=== PATIENT | male | born 1965 | race Caucasian/White ===

== ENCOUNTER 2025-03-30 13:27 | Observation (INO) | payer MEDICARE, MEDICAID, SELFPAY ==
[2025-03-30] VITALS (22 sets, daily range): BP systolic 81–128; BP diastolic 49–90; PULSE 84–102; RESP 14–33; TEMP 37.2; O2SAT 95–99
--- NOTE | ~2025-03-30 | CT_ITS ---
EXAMINATION: CT brain wo con DATE: 03/30/2025 15:36 INDICATION: Altered mental status. TECHNIQUE: Computed tomography (CT) of the head was performed without intravenous contrast. The mA was adjusted according to patient size. Iterative reconstruction technique was employed. The dose-length product was 1257.85 mGy-cm. COMPARISON: None FINDINGS: No acute intracranial bleed. Age-appropriate cerebral atrophy. No ventriculomegaly. No midline shift. No acute bone changes. Sinuses and mastoids are clear. IMPRESSION: 1. No acute findings in the limited noncontrast CT head. Reviewed, dictated and finalized at location T. E PROCESSING TECHNICIAN
--- NOTE | ~2025-03-30 | CT_ITS ---
EXAMINATION: CT chest, abdomen and pelvis with contrast: DATE: 03/30/2025 INDICATION: Clinical history relevant to this examination is not available TECHNIQUE: CT was performed through chest, abdomen and pelvis with 100 cc of IV contrast and reviewed in multiple projections. Radiation dose 480 M Gy CM. COMPARISON: Portable chest x-ray dated 03/30/2025. FINDINGS: The lungs do not show acute findings. Significant coronary artery calcifications are left main, anterior descending circumflex and right coronary artery are noted. No evidence of pneumothorax. Platelike atelectasis is noted at the right lung base. Fractures of posterior right 10th and 11th ribs are noted. Below the diaphragm, no focal lesions of liver and spleen. The gallbladder shows no acute findings. Pancreas and kidneys do not show any acute findings. No evidence of small bowel obstruction. Again fecal impaction of the proximal colon is noted to the sigmoid colon. Appendix is not distinctly visible. No inflammatory changes in the pelvis. IMPRESSION: 1. No acute CT findings in the chest, the gland fractures of posterior right 10th and 11th ribs.. Significant multivessel coronary artery calcifications. 2. No acute findings noted in the abdomen and in the pelvis. Significant diffuse fecal impaction of the colon. Reviewed, dictated and finalized at location T. GER ARCHITECTURE IMPRESSION: 1. No acute CT findings in the chest, the gland fractures of posterior right 10 th and 11th ribs.. Significant multivessel coronary artery calcifications. 2. No acute findings noted in the abdomen and in the pelvis. Significant diffus e fecal impaction of the colon.
--- NOTE | ~2025-03-30 | XR_ITS ---
EXAMINATION: XR chest 1V portable COMPARISON: No comparisons available. HISTORY: AMS FINDINGS: The lungs are clear, no effusion. No pneumothorax. Heart is normal size. Mediastinal and hilar contours are within normal limits. Bony thorax no acute abnormality. Miscellaneous: None Impression: No acute cardiopulmonary abnormality. Reviewed, dictated and finalized at location P. [employer] Impression: No acute cardiopulmonary abnormality.
--- NOTE | 2025-03-30 13:30 | ECG_ITS ---
Test Date: 2025-03-30 14:04:43 Measurements Intervals [place] Rate: 94 P: 50 IN: 128 QRS: 66 QRSD: 84 T: 45 QT: 359 QTc: 451 Interpretive Statements SINUS RHYTHM No previous ECG available for comparison Electronically Signed On 03-30-2025 14:50:24 [employer] by Jacek Barron M.D.
[2025-03-30 14:09] LABS: Hematocrit 37.0 % (42.0-52.0); Hemoglobin 12.6 g/dL (14.0-18.0); Immature Granulocyte Percent A 0.6 % (0-0.5); Lymphocytes Absolute Auto 0.59 K/mm3 (0.9-3.2); Mean Corpuscular HGB Conc 34.1 g/dl (32-36); Mean Corpuscular Hemoglobin 30.7 pg (26-34); Mean Corpuscular Volume 90.0 fl (80-100); Nucleated Red Blood Cells Absolute Auto 0.000 K/mm3 (0.0-0.012); Nucleated Red Blood Cells Perc 0.0 % (0.0-0.2); Platelet Count Result 267 k/mm3 (150-375); Red Blood Count 4.11 M/mm3 (4.6-6.20); White Blood Count 18.7 K/mm3 (4.5-10.0)
--- NOTE | 2025-03-30 14:14 | PC.NURSE ---
pt was given 1L of NS from EMS
--- NOTE | 2025-03-30 14:20 | PC.NURSE ---
pt is A&OX3 at this time. this RN attempted to straight cath for urine. pt agreed to cath. pt then began screaming and fighting this RN when attempting cath, unable to get urine due to pt resisting. this RN asked pt why he was fighting this RN if he agreed to cath and pt said I didn't think it would hurt like that
[2025-03-30 14:24] LABS: INR 1.0; Partial Thromboplastin Time 22.8 Seconds (22.3-36.8); Prothrombin Time 13.6 Seconds (11.1-14.7)
[2025-03-30 14:26] LABS: Alanine Aminotransferase 19 U/L (6-50); Albumin Level 4.5 g/dL (3.5-5.1); Alkaline Phosphatase 56 U/L (38-126); Anion Gap 11 mmol/L (4-12); Aspartate Amino Transferase 21 U/L (17-59); Bilirubin,Total 0.5 mg/dL (0.2-1.3); Blood Urea Nitrogen 19 mg/dL (9-20); CRP 2.6 mg/dL (<1.0); Calcium 8.9 mg/dL (8.4-10.2); Carbon Dioxide 26 mmol/L (22-30); Chloride 100 mmol/L (98-107); Estimated CRCL calculation 50 ml/min; Estimated Glomerular Filt Rate 51; Glucose 243 mg/dL (65-110); Lipase 26 U/L (23-300); Potassium 4.5 mmol/L (3.4-5.0); Sodium 137 mmol/L (137-145); Total Protein 7.4 g/dL (6.3-8.2)
[2025-03-30 14:36] LABS: Troponin I 0.017 ng/mL (0.000-0.034)
[2025-03-30 17:19] LABS: Add Urine Microscopic? YES; Appearance Urine Clear (Clear); Glucose Urine UA 1+ mg/dL (Negative); Leukocyte Esterase Ur Trace LEU/UL (Negative); Nitrate Urine Negative (Negative); Non Pathogenic Casts 0-2; Specific Grav Ur 1.013 (1.001-1.035)
[2025-03-30] MEDS: LACTATED RINGERS 1,000 ML 999 ML (18:02)
--- NOTE | 2025-03-30 18:02 | PC.NURSE ---
EDP Dr. Mckeon gave verbal order for 1L of LR due to pt BP
--- NOTE | 2025-03-30 19:47 | ED_ITS ---
HPI - General Adult General Chief complaint: Altered Mental Status Stated complaint: AMS Time Seen by Provider: 03/30/25 18:00 History of Present Illness HPI narrative: 59-year-old male presents to the emergency department from local intermediate for altered mental status. Patient was found to be more confused and had a low blood pressure at the care facility. Patient was transferred to emergency department by EMS. Patient was treated with IV fluids and route did have improvement his blood pressure. Upon arrival to the emergency department patient states that his speech is at its normal baseline and patient has no dentures and this is the only speech changes that I can identify. Patient has no acute focal neurologic abnormalities. Patient does have history of schizophrenia. Related Data Allergies Allergy/AdvReac Type Severity Reaction Status Date / Time No Known Allergies Allergy Verified 03/30/25 13:59 Review of Systems 2 Review of Systems: All systems reviewed & are unremarkable except as noted in HPI and below PMFSH Past Medical History Medical History (Updated 03/30/25 @ 22:47 by Jeremy Mckeon MD) Schizophrenia Social History Social History (Updated 03/30/25 @ 20:19 by aRdha Kimble APRN) Social History: and has one child . He lives at [facility] Smoking status: Current every day smoker Tobacco type: cigarettes Exam 2 Narrative: APPEARANCE: Well appearing, no pain, no distress, well-nourished. HEAD: normocephalic, atraumatic. EYES: PERRLA/EOMI, conjunctivae clear. NOSE: Normal no drainage EARS:TMS clear with good light reflex. THROAT: Pharynx clear, no exudate. NECK: Supple. No adenopathy, no masses. RESPIRATORY: Airway patent, respirations nonlabored. Clear to auscultation bilaterally, no rales, rhonchi, wheezing. CARDIOVASCULAR: Regular rate and rhythm without murmurs rubs or gallops. ABDOMINAL: Soft, nontender, nondistended, normal bowel sounds MUSCULOSKELETAL: Moves all extremities. Strength/ROM intact, No edema, No calf tenderness. NEURO: Alert. Cranial nerves II through XII intact. Good gait. Good coordination SKIN: Warm, dry. Normal Color Course Vital Signs Vital signs: Vital Signs Temperature 99.0 F 03/30/25 13:18 Pulse Rate 101 H 03/30/25 13:18 Respiratory Rate 32 H 03/30/25 13:18 Blood Pressure 85/66 L 03/30/25 13:18 Pulse Oximetry 95 03/30/25 13:18 Oxygen Delivery Room Air 03/30/25 13:18 Temperature 99.0 F 03/30/25 13:18 Pulse Rate 87 03/30/25 19:37 Respiratory Rate 20 03/30/25 19:37 Blood Pressure 99/90 L 03/30/25 19:37 Pulse Oximetry 96 03/30/25 19:37 Oxygen Delivery Room Air 03/30/25 13:54 Medical Decision Making MDM Narrative Medical decision making narrative: 59-year-old male presents to the emergency department for evaluation for altered mental status. Patient a elevated white blood cell count of 18.7. Hemoglobin of 12.6. INR of 1.0. Patient's creatinine is 1.41 a no baseline is known. Patient's blood glucose is 243. Lactic acid is 2.9. Patient has a troponin of 0.017. Patient's CRP is mildly elevated. Patient UA was negative. CT chest abdomen pelvis showed no acute abnormalities other than a possible fecal impaction. CT head showed no acute abnormalities. Chest x-ray shows no evidence of pneumonia. Patient did respond well to fluid resuscitation. Is still confused emergency department. Patient states his speech is at baseline. Patient has no focal neuro deficit. Patient does not have his teeth and this is affecting his speech. Patient was started on antibiotics for stercoral colitis. Case was discussed with hospitalist patient was accepted for admission. Patient was updated on the results of workup and plan for admission. All questions concerns were addressed. Patient was resting comfortably at time of admission. Differential Diagnosis Differential Diagnosis: Subdural hematoma, subarachnoid hemorrhage, colitis, diverticulitis, appendicitis, pneumonia, COVID, RSV, influenza, UTI Vital Signs Vital Signs: Vital Signs Temperature 99.0 F 03/30/25 13:18 Pulse Rate 101 H 03/30/25 13:18 Respiratory Rate 32 H 03/30/25 13:18 Blood Pressure 85/66 L 03/30/25 13:18 Pulse Oximetry 95 03/30/25 13:18 Oxygen Delivery Room Air 03/30/25 13:18 Temperature 99.0 F 03/30/25 13:18 Pulse Rate 87 03/30/25 19:37 Respiratory Rate 20 03/30/25 19:37 Blood Pressure 99/90 L 03/30/25 19:37 Pulse Oximetry 96 03/30/25 19:37 Oxygen Delivery Room Air 03/30/25 13:54 Lab Data Lab results reviewed: Yes I reviewed the patient's lab results. 03/30/25 13:49 03/30/25 13:49 Labs: Lab Results 03/30/25 03/30/25 03/30/25 Range/Units 13:49 16:53 16:56 WBC 18.7 H (4.5-10.0) K/mm3 RBC 4.11 L (4.6-6.20) M/mm3 Hgb 12.6 L (14.0-18.0) g/dL Hct 37.0 L (42.0-52.0) % MCV 90.0 (80-100) fl MCH 30.7 (26-34) pg MCHC 34.1 (32-36) g/dl RDW 12.7 (11.5-14.5) % Plt Count 267 (150-375) k/mm3 MPV 10.6 H (7.4-10.4) fl Immature Gran % (Auto) 0.6 H (0-0.5) % Neut % (Auto) 83.4 H (45.5-73.1) % Lymph % (Auto) 3.2 L (18.3-44.2) % [place] % (Auto) 12.2 H (2.6-8.5) % Eos % (Auto) 0.3 (0-4.4) % Baso % (Auto) 0.3 (0.2-1.2) % Lymph # (Auto) 0.59 L (0.9-3.2) K/mm3 [place] # (Auto) 2.3 H (0.1-0.6) K/mm3 Eos # (Auto) 0.1 (0-0.3) K/mm3 Baso # (Auto) 0.1 (0.0-0.1) K/mm3 Abs Immat Gran (auto) 0.12 H (0.00-0.031) K/mm3 Absolute Neuts (auto) 15.6 H (1.3-6.7) K/mm3 Absolute Nucleated RBC 0.000 (0.0-0.012) K/mm3 Nucleated RBC % 0.0 (0.0-0.2) % PT 13.6 (11.1-14.7) Seconds INR 1.0 APTT 22.8 (22.3-36.8) Seconds Sodium 137 (137-145) mmol/L Potassium 4.5 (3.4-5.0) mmol/L Chloride 100 (98-107) mmol/L Carbon Dioxide 26 (22-30) mmol/L Anion Gap 11 (4-12) mmol/L BUN 19 (9-20) mg/dL Creatinine 1.41 H (0.7-1.3) mg/dL Estim Creat Clear Calc 50 ml/min Estimated GFR 51 L (59 - ) Glucose 243 H (65-110) mg/dL Lactic Acid 3.9 H 2.9 H (0.7-2.0) mmol/L Calcium 8.9 (8.4-10.2) mg/dL Total Bilirubin 0.5 (0.2-1.3) mg/dL AST 21 (17-59) U/L ALT 19 (6-50) U/L Alkaline Phosphatase 56 (38-126) U/L Troponin I 0.017 (0.000-0.034) ng/mL C-Reactive Protein 2.6 H (<1.0) mg/dL Total Protein 7.4 (6.3-8.2) g/dL Albumin 4.5 (3.5-5.1) g/dL Lipase 26 (23-300) U/L Urine Color Yellow (Yellow) Urine Appearance Clear (Clear) Urine pH 7.5 (5.0-9.0) Ur Specific [place] 1.013 (1.001-1.035) Urine Protein Negative (Negative) mg/dL Urine Glucose (UA) 1+ H (Negative) mg/dL Urine Ketones Negative (Negative) mg/dL Ur Blood (Man) Negative (Negative) Urine Nitrate Negative (Negative) Urine Bilirubin Negative (Negative) Urine Urobilinogen 1.0 (<2.0) mg/dL Leukocyte Esterase Rfl Trace H (Negative) TYRONE/UL Urine RBC 0-2 (0-2) /hpf Urine WBC 0-5 (0-3) /hpf Ur Squamous Epith Cells None seen (Few) /hpf Urine Bacteria None seen /hpf Urine Casts 0-2 Imaging Data Attestation: I personally reviewed and interpreted this imaging study as follows: My impression: Chest x-ray: No acute cardiopulmonary abnormality Radiologist's impression: Impressions Chest X-Ray 03/30/25 14:11 Impression: No acute cardiopulmonary abnormality. Head CT 03/30/25 15:37 IMPRESSION: 1. No acute findings in the limited noncontrast CT head. Chest/Abdomen/Pelvis CT 03/30/25 18:48 IMPRESSION: 1. No acute CT findings in the chest, the gland fractures of posterior right 10th and 11th ribs.. Significant multivessel coronary artery calcifications. 2. No acute findings noted in the abdomen and in the pelvis. Significant diffuse fecal impaction of the colon. Discharge Plan Discharge Clinical Impression: Altered mental status, Sepsis Patient Disposition: Still a Patient Condition: Stable
--- NOTE | 2025-03-30 20:15 | PM.IMHP ---
H&P: HPI History of Present Illness Date/Time: 03/30/25 20:15 Chief Complaint: Altered mental status PE Narrative: This is a 59-year-old male patient who resides at [facility]. He tells me he has a history of schizophrenia. The patient is edentulous and he is difficult to understand. However the [facility] facility felt that the patient's mental status was altered. Her also reported that he had a low blood pressure at the the nursing care facility. The patient was brought to the emergency room via EMS. The patient was treated with IV fluids EN route and his blood pressure did improve. He has no focal neurological abnormalities. His white count was noted to be 18.7. H&H is 12.6 and 37.0. His lactic was 3.9 and 2.9. His glucose was 240. His creatinine is 1.4 with BUN of 19. GFR is 51. He is a very poor historian. Chest x-ray was read as no acute cardiopulmonary abnormality. Head CT was noted as no acute findings and limited non contrast CT head. [id number] CT was read as no acute findings in the abdomen or pelvis. Significant diffuse fecal impaction of the colon. No acute CT findings in the chest, likely and fractures of posterior right 10th and 11th ribs. Significant multivessel coronary artery calcifications. Blood pressures initially were 81/66 and 1 fluids he did come up to 126/69. She is a very poor historian. The patient was empirically placed on Rocephin in the emergency room for an elevated white count. However no source of the infection has been noted.He is being admitted to observation on the dos of 03/30/2025 Review of Systems Review of Systems: ROS unobtainable: Yes unobtainable due to mental status [facility] Past Medical History Medical History (Updated 03/31/25 @ 03:03 by Radha Kimble APRN) Hyperlipidemia COPD (chronic obstructive pulmonary disease) DM2 (diabetes mellitus, type 2) Generalized anxiety disorder Hypertension Schizophrenia Paranoid schizophrenia Surgical History Surgical History (Updated 03/31/25 @ 19:17 by Radha Kimble APRN) No pertinent past surgical history Family History Family History (Updated 03/31/25 @ 19:18 by Radha Kimble APRN) Other Unknown family medical history Social History Social History (Updated 03/31/25 @ 03:04 by Radha Kimble, SENIOR MECHANICAL PROJECT ENGINEER) Social History: He stated that he is and has one child . He lives at [facility], [place] Code status: DNR Smoking packs per day: 1 Smoking cigarettes per day: 20.0 Years smoked: 45 Smoking pack-years: 45.00 Smoking status: Current every day smoker Tobacco type: cigarettes Second hand tobacco smoke exposure: Yes Alcohol intake: unknown Substance use: unknown Spiritual care concerns: No Meds Home Medications and Allergies Home Medications ?Medication ?Instructions ?Recorded ?Confirmed ?Type amlodipine 10 mg tablet 10 mg PO DAILY 03/30/25 03/30/25 History benztropine 1 mg tablet 2 mg PO BID 03/30/25 03/30/25 History divalproex 500 mg tablet,delayed 500 mg PO Q12H 03/30/25 03/30/25 History release escitalopram oxalate 20 mg tablet 20 mg PO DAILY 03/30/25 03/30/25 History fenofibrate nanocrystallized 48 mg 48 mg PO DAILY 03/30/25 03/30/25 History tablet fluticasone propionate 115 2 puff inhalation Q12H 03/30/25 03/30/25 History mcg-salmeterol 21 mcg/actuation HFA inhaler fluticasone propionate 50 2 spray intranasal DAILY 03/30/25 03/30/25 History mcg/actuation nasal spray,suspension lidocaine 5 % topical patch 1 patch topical DAILY 03/30/25 03/30/25 History lisinopril 10 mg tablet 10 mg PO DAILY 03/30/25 03/31/25 History olanzapine 10 mg tablet 10 mg PO DAILY 03/30/25 03/30/25 History pantoprazole 40 mg tablet,delayed 40 mg PO DAILY 03/30/25 03/31/25 History release albuterol 90 mcg-budesonide 80 2 inh inhalation Q6H PRN shortness 03/31/25 03/31/25 History mcg/actuation HFA aerosol inhaler of breath (Airsupra) atorvastatin 20 mg tablet 20 mg PO HS 03/31/25 03/31/25 History bisacodyl 10 mg rectal suppository 10 mg RECTAL DAILY PRN constipation 03/31/25 03/31/25 History cyanocobalamin (vitamin B-12) 1,000 mcg PO DAILY 03/31/25 03/31/25 History 1,000 mcg capsule diclofenac sodium 1 % topical gel 2 g topical QID 03/31/25 03/31/25 History hydrocodone 5 mg-acetaminophen 325 1 tablet PO Q6H PRN pain 03/31/25 03/31/25 History mg tablet magnesium citrate 296 ml PO DAILY PRN constipation 03/31/25 03/31/25 History magnesium hydroxide 400 mg/5 mL 30 ml PO DAILY PRN constipation 03/31/25 03/31/25 History oral suspension (Milk of Magnesia) meloxicam 15 mg tablet 15 mg PO DAILY PRN pain 03/31/25 03/31/25 History metformin 1,000 mg tablet 1,000 mg PO DAILY 03/31/25 03/31/25 History naloxone 4 mg/actuation nasal 4 mg intranasal Q2-3M PRN opioid 03/31/25 03/31/25 History spray (Narcan) overdose olanzapine 5 mg tablet 5 mg PO HS 03/31/25 03/31/25 History sodium phosphates 19 gram-7 118 ml RECTAL DAILY PRN 03/31/25 03/31/25 History gram/118 mL enema (Fleet Enema) constipation Allergies Allergy/AdvReac Type Severity Reaction Status Date / Time No Known Allergies Allergy Verified 03/31/25 00:26 Vital Signs Vital Signs - 24 hr 03/30/25 13:18 03/30/25 13:34 03/30/25 13:53 Temperature 99.0 F Pulse Rate 101 H 101 H 101 H Respiratory Rate 32 H 21 H Blood Pressure 85/66 L 107/66 Pulse Oximetry 95 97 Oxygen Delivery Room Air 03/30/25 13:54 03/30/25 14:24 03/30/25 14:25 Temperature Pulse Rate 102 H 100 Respiratory Rate 16 25 H Blood Pressure 128/67 128/67 Pulse Oximetry 99 98 97 Oxygen Delivery Room Air 03/30/25 14:26 03/30/25 14:30 03/30/25 14:31 Temperature Pulse Rate 100 96 96 Respiratory Rate 19 29 H Blood Pressure 107/65 107/65 Pulse Oximetry Oxygen Delivery 03/30/25 14:46 03/30/25 15:00 03/30/25 15:15 Temperature Pulse Rate 95 93 94 Respiratory Rate 27 H 24 H 24 H Blood Pressure 99/69 L 96/69 L 98/70 L Pulse Oximetry Oxygen Delivery 03/30/25 16:45 03/30/25 17:00 03/30/25 17:15 Temperature Pulse Rate 88 90 90 Respiratory Rate 22 H 26 H 33 H Blood Pressure 106/67 105/62 104/64 Pulse Oximetry Oxygen Delivery 03/30/25 17:30 03/30/25 17:45 03/30/25 17:58 Temperature Pulse Rate 88 85 92 Respiratory Rate 22 H 25 H 26 H Blood Pressure 99/49 L 89/64 L 81/66 L Pulse Oximetry 97 Oxygen Delivery 03/30/25 18:00 03/30/25 18:17 03/30/25 19:37 Temperature Pulse Rate 89 84 87 Respiratory Rate 24 H 20 20 Blood Pressure 104/61 114/57 L 99/90 L Pulse Oximetry 96 96 Oxygen Delivery Exam Const: General: cooperative, healthy appearing, awake, Physically active, average body habitus and well nourished Nutritional Appearance: average body habitus and well nourished Orientation/consciousness: oriented to person HENMT: Head: normal to inspection, No palpable skull fracture present, normocephalic, atraumatic and abrasion Ears: hearing grossly normal bilaterally and external ears normal Eyes: General: appearance normal, both eyes and all related structures Alignment and Position: alignment normal Periorbital: periorbital findings normal Eyelids: eyelids normal Conjunctivae: conjunctivae normal Sclera: sclerae normal Cornea: corneas normal Pupils: Equal, round and reactive pupils present and Pupil accommodation reflex normal EOM: EOMs intact bilaterally Neck: Neck: normal visual inspection, full ROM, no lymphadenopathy and trachea midline Chest: Chest palpation & inspection: normal inspection of the chest Resp: Effort & Inspection: normal respiratory effort Auscultation: clear to auscultation bilaterally Percussion: percussion normal Cardio: Palpation: normal PMI Rate: regular rate Rhythm: regular rhythm Heart sounds: S1 normal heart sound present and S2 normal heart sound present Peripheral pulses: Peripheral pulses 2+ throughout GI: Inspection: normal to inspection Percussion: Yes normal to percussion Auscultation: normal bowel sounds Rectal Exam: deferred : General: Yes no CVA tenderness Skin: General skin exam: normal color Lesions: no lesions Rashes: no rashes Trauma: no lacerations or abrasions Wounds: no wounds Hair: normal Nails: normal Neuro: General: oriented to person and patient oriented x3 Cranial nerves: Yes Equal, round and reactive pupils present and Yes Normal hearing present Gait exam (Neuro): Normal gait present Motor exam (neuro): 5/5 motor strength present throughout Sensory Exam: normal sensation Extrem: General: normal to inspection Right upper extremity: normal to inspection and shoulder/upper arm Left upper extremity: normal to inspection and shoulder/upper arm Right lower extremity: normal to inspection Left lower extremity: normal to inspection Psych: Appearance: grossly normal Mental Status: mental status grossly normal Speech and movement: Normal speech and movement present Affect: normal affect Attitude: cooperative Thought process: Normal thought process present Thought content: Yes Normal thought content present H&P: Results Labs Labs: Short CBC 03/30/25 Range/Units 13:49 WBC 18.7 H (4.5-10.0) K/mm3 Hgb 12.6 L (14.0-18.0) g/dL Hct 37.0 L (42.0-52.0) % Plt Count 267 (150-375) k/mm3 BMP 03/30/25 13:49 Sodium 137 Potassium 4.5 Chloride 100 Carbon Dioxide 26 BUN 19 Creatinine 1.41 H Glucose 243 H Calcium 8.9 Cardiac Enzymes 03/30/25 Range/Units 13:49 Troponin I 0.017 (0.000-0.034) ng/mL Liver Function 03/30/25 Range/Units 13:49 Total Bilirubin 0.5 (0.2-1.3) mg/dL AST 21 (17-59) U/L ALT 19 (6-50) U/L Alkaline Phosphatase 56 (38-126) U/L Albumin 4.5 (3.5-5.1) g/dL Urine 03/30/25 Range/Units 16:56 Urine Color Yellow (Yellow) Urine Appearance Clear (Clear) Urine pH 7.5 (5.0-9.0) Ur Specific [place] 1.013 (1.001-1.035) Urine Protein Negative (Negative) mg/dL Urine Glucose (UA) 1+ H (Negative) mg/dL Imaging Chest x-ray: Radiologist's impression: ITS Impressions Chest X-Ray 03/30/25 14:11 Impression: No acute cardiopulmonary abnormality. Head CT 03/30/25 15:37 IMPRESSION: 1. No acute findings in the limited noncontrast CT head. Chest/Abdomen/Pelvis CT 03/30/25 18:48 IMPRESSION: 1. No acute CT findings in the chest, the gland fractures of posterior right 10th and 11th ribs.. Significant multivessel coronary artery calcifications. 2. No acute findings noted in the abdomen and in the pelvis. Significant diffuse fecal impaction of the colon. Assessment and Plan Assessment and plan (1) Altered mental status: Code(s): R41.82 - Altered mental status, unspecified Status: Acute Assessment and Plan: -the patient was hypotensive upon arrival. However after IV fluids the patient was more awake. However at the time of my assessment in the emergency room the patient was a poor historian. -his white count was elevated but this could be stress-induced. No source of infection was located at this time. The patient was empirically started on Rocephin. -His head CT was negative. -urine drug screen was ordered -blood cultures were ordered. -he also has a history of schizophrenia which may have caused some of his altered mental status as well. -chest abdomen pelvis CT only suggested that he had old rib fractures. And also suggested that he had multiple coronary artery calcification however the patient has not had any chest pain. The patient may require further workup per cardiology due to the calcification with multiple coronary arteries. He denies any chest pain at this time. He is currently on cholesterol medicine. -his lactic was 3.9 and then 2.9. -could the patient have had a seizure?(the patient does on the divalproex, is unclear if this is for his mental illness or a seizure) (2) COPD (chronic obstructive pulmonary disease): Code(s): J44.9 - Chronic obstructive pulmonary disease, unspecified Status: Acute Assessment and Plan: -continue with home inhalers. - (3) DM2 (diabetes mellitus, type 2): Code(s): E11.9 - Type 2 diabetes mellitus without complications Status: Acute Assessment and Plan: -Accu-Cheks AC and HS. -hold metformin at this time. -check A1c. -his blood sugar was noted to be 243. -his anion gap was 11. (4) Hyperlipidemia: Code(s): E78.5 - Hyperlipidemia, unspecified Status: Acute Assessment and Plan: -continue with atorvastatin and fenofibrate (5) Hypertension: Code(s): I10 - Essential (primary) hypertension Status: Acute Assessment and Plan: -patient's blood pressure medications are on hold at this time due to his hypotensive event. HIs blood pressure was a 81/66 and is now 126/69. (6) Generalized anxiety disorder: Code(s): F41.1 - Generalized anxiety disorder Status: Acute Assessment and Plan: -continue with Lexapro (7) Schizophrenia: Code(s): F20.9 - Schizophrenia, unspecified Status: Acute Assessment and Plan: -continue with olanzapine and divalproex? Quality VTE Prophylaxis VTE prophylaxis: mechanical ordered
[2025-03-30] MEDS: LACTATED RINGERS 1,000 ML 150 ML IV CONT (20:24)
[2025-03-30] MEDS: cefTRIAXone 1 GM in SODIUM CHLORIDE 0.9% IV 50 ML 100 ML IVPB (20:24)
[2025-03-30] MEDS: metroNIDAZOLE 500 MG/ISO 100ML 500 MG/100 ML BAG 100 MG IVPB (21:06)
--- NOTE | 2025-03-30 23:09 | WPCEDHO ---
ED Hand Off Checklist All vitals saved: YES IV Site documented: YES All med administrations documented: YES Triage Note Triage Note pt to ED from [facility] 03/30/25 13:18 [facility] for c/o AMS. EMS reports confusion, abnormal speech (not normal for pt), usually A&OX2-3 baseline pt is not answering questions or acting appropriately . unknown LKW. EMS reports FAST ED 1. EMS got a BP of 96/64, EMS initiated 18gLAC and gave 200mL NS, got a BP of 110/60. EMS reports pt was tachy. EMS got a BG of 241. HX schizophrenia, COPD , HTN, T2DM. pt is A&OX0 at this time Allergies No Known Allergies Allergy (Verified 03/30/25 13:59) Active Medications including assessments/comments Lactated Ringer's (Lr - Lactated Ringers Iv) 1,000 mls @ 150 mls/hr IV CONT .[id number] STA Stop: 03/31/25 02:20 Last Admin: 03/30/25 20:24 Dose: 150 mls/hr Documented By: RAFFI Infusion/Titration Document 03/30/25 20:24 RAFFI (Rec: 03/30/25 20:24 RAFFI [id number]) Intake IV Site Peripheral Access Right Antecubital Container Volume 1,000 Waste Amount 0 Dosing Infusion Rate 150 Cumulative Dose Not Applicable Increase/Decrease Started Elapsed Time Elapsed Time ( 0m minutes) Administered/Completed Medications Discontinued Medications Lactated Ringer's (Lr - Lactated Ringers Iv) Confirm Administered Dose 1,000 mls @ as directed .ROUTE .STK-MED ONE Stop: 03/30/25 18:00 Last Infusion: 03/30/25 19:38 Dose: Infused Documented By: Admin: 03/30/25 18:02 Dose: 999 mls/hr Documented By: GENARO Ceftriaxone Sodium 1 gm/ (Sodium Chloride) 50 mls @ 100 mls/hr IVPB ONCE STA Stop: 03/30/25 20:10 Last Infusion: 03/30/25 21:01 Dose: Infused Documented By: Admin: 03/30/25 20:24 Dose: 100 mls/hr Documented By: RAFFI Metronidazole (Flagyl 500 Mg/Iso Soln 100 Ml) 500 mg in 100 mls @ 100 mls/hr IVPB ONCE STA Stop: 03/30/25 20:40 Last Infusion: 03/30/25 22:27 Dose: Infused Documented By: Admin: 03/30/25 21:06 Dose: 100 mls/hr Documented By: JOHN Notes 03/30/25 18:02 Nurse Note by Ana Davis EDP Dr. Mckeon gave verbal order for 1L of LR due to pt BP Initialized on 03/30/25 18:02 - END OF NOTE 03/30/25 14:20 Nurse Note by Ana Davis. pt is A&OX3 at this time. this RN attempted to straight cath for urine. pt agreed to cath. pt then began screaming and fighting this RN when attempting cath, unable to get urine due to pt resisting. this RN asked pt why he was fighting this RN if he agreed to cath and pt said I didn't think it would hurt like that Initialized on 03/30/25 14:20 - END OF NOTE 03/30/25 14:14 Nurse Note by Ana Davis. pt was given 1L of NS from EMS Initialized on 03/30/25 14:14 - END OF NOTE Interventions/Assessments Cardiac Monitoring Start: 03/30/25 13:16 Freq: Status: Active Protocol: Document 03/30/25 14:26 KNW (Rec: 03/30/25 14:26 KNW [id number]) Train Master Assessment Train Master Yes Applied Pulse Rate (60-100) 100 EKG Rythm Sinus Rhythm IV / Saline Lock, Insert Start: 03/30/25 13:16 Freq: Status: Active Protocol: Document 03/30/25 15:48 KNW (Rec: 03/30/25 15:49 KNW [id number]) IV Assessment Peripheral Access Left Antecubital IV Catheter Access Discontinued Access IV Care and Catheter Removed Intact Maintenance Additional IV pt ripped IV out Comments PA: Cardiovascular Assessment Start: 03/30/25 13:16 Freq: Status: Active Protocol: Document 03/30/25 13:54 KNW (Rec: 03/30/25 13:59 KNW [id number]) Cardiovascular Assessment Skin Description Normal Color Heart Sounds Normal Jugular Vein None Distention PA: Neurological Assessment Start: 03/30/25 13:16 Freq: Status: Active Protocol: Document 03/30/25 23:07 MCO (Rec: 03/30/25 23:08 MCO [id number]) Neurological Assessment Level of Sleeping Consciousness Arousable to Verbal Orientation Oriented to Person,Oriented to Place Neurological Confusion,Weakness, General Symptoms PA: Respiratory Assessment Start: 03/30/25 13:16 Freq: Status: Active Protocol: Document 03/30/25 13:54 KNW (Rec: 03/30/25 13:59 KNW [id number]) Respiratory Assessment Symptoms None Pattern Tachypnea Depth Shallow Chest Expansion Symmetrical Anterior Upper Lobe(s) Phase Inspiratory & Expiratory Lung Sounds Clear Cough Description None Sputum Amount None Oxygen Delivery Oxygen Delivery Room Air Pulse Oximetry (90- 99 100) Last Vital Signs Temperature 99.0 F 03/30/25 13:18 Pulse Rate 87 03/30/25 19:37 Respiratory Rate 14 03/30/25 23:05 Pulse Oximetry 98 03/30/25 23:05 Blood Pressure 93/50 L 03/30/25 23:05 Blood Pressure Mean 64 03/30/25 23:05 Blood Pressure Position Right Lateral 03/30/25 23:05 Oxygen Delivery Room Air 03/30/25 13:54 Weight 78.2 kg 03/30/25 13:18 Last Result - Abnormals Only WBC 18.7 K/mm3 (4.5-10.0) H 03/30/25 13:49 RBC 4.11 M/mm3 (4.6-6.20) L 03/30/25 13:49 Hgb 12.6 g/dL (14.0-18.0) L 03/30/25 13:49 Hct 37.0 % (42.0-52.0) L 03/30/25 13:49 MPV 10.6 fl (7.4-10.4) H 03/30/25 13:49 Immature Gran % (Auto) 0.6 % (0-0.5) H 03/30/25 13:49 Neut % (Auto) 83.4 % (45.5-73.1) H 03/30/25 13:49 Lymph % (Auto) 3.2 % (18.3-44.2) L 03/30/25 13:49 [place] % (Auto) 12.2 % (2.6-8.5) H 03/30/25 13:49 Lymph # (Auto) 0.59 K/mm3 (0.9-3.2) L 03/30/25 13:49 [place] # (Auto) 2.3 K/mm3 (0.1-0.6) H 03/30/25 13:49 Abs Immat Gran (auto) 0.12 K/mm3 (0.00-0.031) H 03/30/25 13:49 Absolute Neuts (auto) 15.6 K/mm3 (1.3-6.7) H 03/30/25 13:49 Creatinine 1.41 mg/dL (0.7-1.3) H 03/30/25 13:49 Estimated GFR 51 (59-) L 03/30/25 13:49 Glucose 243 mg/dL (65-110) H 03/30/25 13:49 Lactic Acid 2.9 mmol/L (0.7-2.0) H 03/30/25 16:53 C-Reactive Protein 2.6 mg/dL (<1.0) H 03/30/25 13:49 Urine Glucose (UA) 1+ mg/dL (Negative) H 03/30/25 16:56 Leukocyte Esterase Rfl Trace TYRONE/UL (Negative) H 03/30/25 16:56
--- NOTE | 2025-03-30 23:40 | ADMGEN ---
This patient, Efrain Longo, was admitted to IMU Room 206-01 via stretcher with one tech and no issues present. Patient/family oriented to hospital policies and general routines including ID bracelet, bed and alarms, visiting hours, pain management, procedures, bathroom and other care routines, personal items, smoking policy, room service/diet, and visiting hours. Information on how to activate the Rapid Response Team has been discussed. Patient/Family are encouraged to report perceived risks to care and to ask questions if they do not understand what they are told or what they should do.
[2025-03-31] VITALS (16 sets, daily range): BP systolic 112–150; BP diastolic 55–90; PULSE 69–92; RESP 15–20; TEMP 36.4–37.1; O2SAT 93–100; BMI 24.5; BMI 25.4
--- NOTE | 2025-03-31 01:35 | PC.NURSE ---
Pt code status changed to DNR from Full code verified by second RN Bianca Coronado, pts nursing facility [facility] in [place] has been provided the fax number to send the correct documentation for code status.
[2025-03-31 04:03] LABS: Cannabinoid Screen Urine Negative (Negative)
[2025-03-31 04:11] LABS: Hematocrit 31.3 % (42.0-52.0); Hemoglobin 10.4 g/dL (14.0-18.0); Mean Corpuscular HGB Conc 33.2 g/dl (32-36); Mean Corpuscular Hemoglobin 30.1 pg (26-34); Mean Corpuscular Volume 90.7 fl (80-100); Platelet Count Result 215 k/mm3 (150-375); Red Blood Count 3.45 M/mm3 (4.6-6.20); White Blood Count 13.9 K/mm3 (4.5-10.0)
[2025-03-31 04:21] LABS: Hemoglobin A1C 7.8 % (<5.7)
[2025-03-31 05:00] LABS: Anion Gap 6 mmol/L (4-12); Blood Urea Nitrogen 15 mg/dL (9-20); Calcium 8.4 mg/dL (8.4-10.2); Carbon Dioxide 27 mmol/L (22-30); Chloride 102 mmol/L (98-107); Estimated CRCL calculation 57 ml/min; Estimated Glomerular Filt Rate > 60; Glucose 166 mg/dL (65-110); Potassium 3.8 mmol/L (3.4-5.0); Sodium 135 mmol/L (137-145)
[2025-03-31] MEDS: metroNIDAZOLE 500 MG/ISO 100ML 500 MG/100 ML BAG 100 MG IVPB ×3 (05:49→21:15)
[2025-03-31] MEDS: FLUTICASONE/SALMETEROL 115-21 MCG INHALER 1 PUFF 2 PUFF INHALATION ×2 (07:53→19:57)
[2025-03-31] MEDS: INSULIN ASPART (*BKC) 100 UNITS/ML SUB-Q (07:56)
[2025-03-31] MEDS: LIDOCAINE 5% PATCH 1 PATCH TOPICAL (07:58)
[2025-03-31] MEDS: ESCITALOPRAM OXALATE 10 MG TABLET 20 MG PO (07:59)
[2025-03-31] MEDS: CYANOCOBALAMIN 1,000 MCG TABLET 1000 MCG PO (07:59)
[2025-03-31] MEDS: FLUTICASONE PROPIONATE 0.05% NA SPR 16 GM BTL (*BKC) 2 SPRAY NASAL (07:59)
[2025-03-31] MEDS: PANTOPRAZOLE 40 MG TABLET PO (07:59)
[2025-03-31] MEDS: DIVALPROEX SODIUM DR 250 MG TABEC 500 MG PO ×2 (08:00→20:41)
[2025-03-31] MEDS: FENOFIBRATE 48 MG TABLET PO (08:00)
[2025-03-31] MEDS: DICLOFENAC SODIUM 1% 100 GM GEL (*BKC) 1 APPLIC TOPICAL ×4 (08:01→20:49)
[2025-03-31] MEDS: BENZTROPINE MESYLATE 1 MG TABLET 2 MG PO ×2 (08:01→20:41)
[2025-03-31] MEDS: BISACODYL 10 MG SUPPOSITORY RECTAL (16:26)
--- NOTE | 2025-03-31 16:27 | PM.IMPN ---
Progress Note: A&P Assessment and Plan (1) Altered mental status: Code(s): R41.82 - Altered mental status, unspecified Status: Acute Assessment and Plan: The patient was hypotensive upon arrival. However after IV fluids the patient was more awake. WBC 19K and Lactic acid 3.9. No source of infection was located at this time. Head CT was negative. CXR clear. UA is not consistent with UTI. CT Ch/A/P showing no acute findings. He did have fecal impaction and significant coronary artery calcifications. No CP. UDS negative. Troponin negative x 1 BCx ordered and he was empirically started on Rocephin. Consider possible seizure but no metabolic acidosis. He is on divalproex but unclear if for his mental illness or for seizure d/o Appears improved but still confused. Check EEG if still here by Thursday. Sz precautions. Consider MRI. Blood cultures are negative after 2 days, will stop antibiotics (2) COPD (chronic obstructive pulmonary disease): Code(s): J44.9 - Chronic obstructive pulmonary disease, unspecified Status: Acute Assessment and Plan: Stable and on room air. No wheezing. Continue inhalers (3) DM2 (diabetes mellitus, type 2): Code(s): E11.9 - Type 2 diabetes mellitus without complications Status: Acute Assessment and Plan: A1c 7.8%. The patient's blood glucose was reviewed on 03/31 Glucose remains elevated at times Continue AccuCheks covering with sliding scale. Hypoglycemia protocol available as needed. Add Lantus (4) Hyperlipidemia: Code(s): E78.5 - Hyperlipidemia, unspecified Status: Acute Assessment and Plan: LFTs normal. Continue with atorvastatin and fenofibrate (5) Hypertension: Code(s): I10 - Essential (primary) hypertension Status: Acute Assessment and Plan: Patient's blood pressure was reviewed on 03/31 BP was 85/66 on presentation. BP remains soft at times. Will continue lisinopril and place parameters (6) Generalized anxiety disorder: Code(s): F41.1 - Generalized anxiety disorder Status: Acute Assessment and Plan: Mood stable. Continue with Lexapro (7) Schizophrenia: Code(s): F20.9 - Schizophrenia, unspecified Status: Acute Assessment and Plan: Stable. Continue with olanzapine Plan Coronary calcifications -plan outpatient follow-up with Cardiology after discharge. Continue Lipitor. Add aspirin Fecal impaction -MiraLax started. Will switch to lactulose. DVT prophylaxis -SCDs Code status -DNR Subjective Date/time seen: 03/31/25 16:27 Interval history: 59yo male with schizophrenia, HLD, COPD, DM and HTN here for AMS. No complaints. No CP or SOB. Requests discharge. He is confused Review of Systems Review of Systems: ROS unobtainable: Yes unobtainable due to mental status Exam Narrative: AF 98.1 150/82 88 20 98% ra Gen - NARD Chest - CTA bilaterally, nml RR CV - RRR S1/S2. Tele showing no significant dysrhythmias Abd - Soft, NT/ND, Positive BS Ext - No pedal edema Neuro - Alert but confused Psych - Nml mood and affect Skin - Warm and dry Objective Data Vital Signs Vital Signs: Vital Signs - 24 hr 03/30/25 16:45 03/30/25 17:00 03/30/25 17:15 Temperature Pulse Rate 88 90 90 Respiratory Rate 22 H 26 H 33 H Blood Pressure 106/67 105/62 104/64 Pulse Oximetry Oxygen Delivery 03/30/25 17:30 03/30/25 17:45 03/30/25 17:58 Temperature Pulse Rate 88 85 92 Respiratory Rate 22 H 25 H 26 H Blood Pressure 99/49 L 89/64 L 81/66 L Pulse Oximetry 97 Oxygen Delivery 03/30/25 18:00 03/30/25 18:17 03/30/25 19:37 Temperature Pulse Rate 89 84 87 Respiratory Rate 24 H 20 20 Blood Pressure 104/61 114/57 L 99/90 L Pulse Oximetry 96 96 Oxygen Delivery 03/30/25 23:05 03/31/25 00:00 03/31/25 00:00 Temperature Pulse Rate 69 Respiratory Rate 14 Blood Pressure 93/50 L Pulse Oximetry 98 100 Oxygen Delivery Room Air 03/31/25 00:01 03/31/25 02:00 03/31/25 04:00 Temperature 97.6 F 97.9 F Pulse Rate 81 72 72 Respiratory Rate 15 16 Blood Pressure 126/69 120/55 L Pulse Oximetry 100 95 Oxygen Delivery 03/31/25 04:00 03/31/25 04:00 03/31/25 06:00 Temperature Pulse Rate 69 71 Respiratory Rate Blood Pressure Pulse Oximetry 100 Oxygen Delivery Room Air 03/31/25 07:24 03/31/25 07:56 03/31/25 08:00 Temperature 97.6 F Pulse Rate 73 73 Respiratory Rate 20 20 Blood Pressure 112/64 Pulse Oximetry 96 93 93 Oxygen Delivery Room Air Room Air 03/31/25 08:00 03/31/25 10:00 03/31/25 11:13 Temperature 98.1 F Pulse Rate 87 82 92 Respiratory Rate 20 Blood Pressure 150/82 H Pulse Oximetry 98 Oxygen Delivery 03/31/25 12:00 03/31/25 12:00 Temperature Pulse Rate 88 88 Respiratory Rate 20 Blood Pressure Pulse Oximetry 98 Oxygen Delivery Room Air Intake/Output Intake/Output: Intake & Output 03/28/25 03/29/25 03/30/25 03/31/25 23:59 23:59 23:59 23:59 Intake Total 1150 1984 Output Total 6265 Balance 1150 -301 Meds/Results Medications: Active Medications Generic Name Dose Route Start Last Admin Trade Name Freq PRN Reason Stop Dose Admin Atorvastatin Calcium 20 mg 03/31/25 21:00 Atorvastatin 20 Mg Tablet PO HS COUNTS INCLUDE 234 BEDS AT [facility] Benztropine Mesylate 2 mg 03/31/25 09:00 03/31/25 08:01 Benztropine Mesylate 1 Mg Tablet PO 2 mg Q12HR DEVAN Administration Bisacodyl 10 mg 03/31/25 02:50 Bisacodyl 10 Mg Suppository RECTAL DAILY PRN Constipation Cyanocobalamin 1,000 mcg 03/31/25 09:00 03/31/25 07:59 Cyanocobalamin 1,000 Mcg Tablet PO 1,000 mcg DAILY DEVAN Administration Dextrose 12.5 gm 03/31/25 03:21 Dextrose 50% 25 Gm/50 Ml Syringe IV PUSH PRN PRN Hypoglycemia Protocol Diclofenac Sodium 1 applic 03/31/25 09:00 03/31/25 14:37 Diclofenac Sodium 1% 100 Gm Gel (*Bkc) TOPICAL 1 applic QID DEVAN Administration Divalproex Sodium 500 mg 03/31/25 09:00 03/31/25 08:[address] 250 Mg Tabec PO 500 mg Q12HR DEVAN Administration Escitalopram Oxalate 20 mg 03/31/25 09:00 03/31/25 07:59 Escitalopram Oxalate 10 Mg Tablet PO 20 mg DAILY DEVAN Administration Fenofibrate 48 mg 03/31/25 09:00 03/31/25 08:00 Fenofibrate 48 Mg Tablet PO 48 mg DAILY DEVAN Administration Fluticasone Propionate 2 spray 03/31/25 09:00 03/31/25 07:59 Fluticasone Propionate 0.05% Na Spr 16 Gm Btl (*Bkc) NASAL 2 spray DAILY DEVAN Administration Glucagon 1 mg 03/31/25 03:21 Glucagon For Inj 1 Mg Vial IM PRN PRN Hypoglycemia Protocol Glucose 15 gm 03/31/25 03:21 Glucose Oral Gel 15 Gm Of Glucse In 37.5 Gm Tube PO PRN PRN Hypoglycemia Protocol Ceftriaxone Sodium 1 gm/ 50 mls @ 100 mls/hr 03/31/25 20:00 Sodium Chloride IVPB Q24H DEVAN Metronidazole 500 mg in 100 mls @ 100 mls/hr 03/31/25 06:00 03/31/25 14:33 Flagyl 500 Mg/Iso Soln 100 Ml IVPB 100 mls/hr Q8H DEVAN Administration Dextrose 1,000 mls @ 100 mls/hr 03/31/25 03:21 Dextrose 5% 1,000 Ml IVPB PRN PRN Hypoglycemia Protocol Insulin Aspart 2 - 5 units 03/31/25 08:00 03/31/25 11:31 Insulin Aspart (*Bkc) 100 Units/Ml SUB-Q Not Given TIDWM DEVAN Protocol Lidocaine 1 patch 03/31/25 09:00 03/31/25 07:58 Lidocaine 5% Patch TOPICAL 1 patch DAILY DEVAN Administration Lisinopril 10 mg 03/31/25 09:00 03/31/25 07:59 Lisinopril 10 Mg Tablet PO 10 mg DAILY DEVAN Administration Meloxicam 15 mg 03/31/25 02:57 Meloxicam 7.5 Mg Tablet PO DAILY PRN pain Olanzapine 10 mg 03/31/25 09:00 03/31/25 08:00 Olanzapine 5 Mg Tablet PO 10 mg DAILY DEVAN Administration Pantoprazole Sodium 40 mg 03/31/25 09:00 03/31/25 07:59 Pantoprazole 40 Mg Tablet PO 40 mg DAILY DEVAN Administration Polyethylene Glycol 17 gm 04/01/25 09:00 Polyethylene Glycol 3350 17 Gm Powd.Pack PO QAM DEVAN Fluticasone/Salmeterol 2 puff 03/31/25 08:00 03/31/25 07:53 Fluticasone/Salmeterol 115-21 Mcg Inhaler 1 Puff INHALATION 2 puff Q12HRT DEVAN Administration Radiology Results: ITS Impressions Chest X-Ray 03/30/25 14:11 Impression: No acute cardiopulmonary abnormality. Head CT 03/30/25 15:37 IMPRESSION: 1. No acute findings in the limited noncontrast CT head. Chest/Abdomen/Pelvis CT 03/30/25 18:48 IMPRESSION: 1. No acute CT findings in the chest, the gland fractures of posterior right 10th and 11th ribs.. Significant multivessel coronary artery calcifications. 2. No acute findings noted in the abdomen and in the pelvis. Significant diffuse fecal impaction of the colon. Labs Labs: Laboratory Results - last 24 hr 03/30/25 03/30/25 03/31/25 16:53 16:56 03:35 WBC 13.9 H RBC 3.45 L Hgb 10.4 L Hct 31.3 L MCV 90.7 MCH 30.1 MCHC 33.2 RDW 13.0 Plt Count 215 MPV 10.6 H Sodium 135 L Potassium 3.8 Chloride 102 Carbon Dioxide 27 Anion Gap 6 BUN 15 Creatinine 1.22 Estim Creat Clear Calc 57 Estimated GFR > 60 Glucose 166 H POC Capillary Glucose Hemoglobin A1c 7.8 H Lactic Acid 2.9 H Calcium 8.4 Urine Color Yellow Urine Appearance Clear Urine pH 7.5 Ur Specific [place] 1.013 Urine Protein Negative Urine Glucose (UA) 1+ H Urine Ketones Negative Ur Blood (Man) Negative Urine Nitrate Negative Urine Bilirubin Negative Urine Urobilinogen 1.0 Leukocyte Esterase Rfl Trace H Urine RBC 0-2 Urine WBC 0-5 Ur Squamous Epith Cells None seen Urine Bacteria None seen Urine Casts 0-2 Urine Opiates Screen Urine Methadone Screen Ur Barbiturates Screen Ur Phencyclidine Scrn Ur Amphetamine Screen U Benzodiazepines Scrn Urine Cocaine Screen U Cannabinoids Screen 03/31/25 03/31/25 03/31/25 03:39 07:49 11:15 WBC RBC Hgb Hct MCV MCH MCHC RDW Plt Count MPV Sodium Potassium Chloride Carbon Dioxide Anion Gap BUN Creatinine Estim Creat Clear Calc Estimated GFR Glucose POC Capillary Glucose 285 H 180 H Hemoglobin A1c Lactic Acid Calcium Urine Color Urine Appearance Urine pH Ur Specific [place] Urine Protein Urine Glucose (UA) Urine Ketones Ur Blood (Man) Urine Nitrate Urine Bilirubin Urine Urobilinogen Leukocyte Esterase Rfl Urine RBC Urine WBC Ur Squamous Epith Cells Urine Bacteria Urine Casts Urine Opiates Screen Negative Urine Methadone Screen Negative Ur Barbiturates Screen Negative Ur Phencyclidine Scrn Negative Ur Amphetamine Screen Negative U Benzodiazepines Scrn Negative Urine Cocaine Screen Negative U Cannabinoids Screen Negative 03/31/25 16:20 WBC RBC Hgb Hct MCV MCH MCHC RDW Plt Count MPV Sodium Potassium Chloride Carbon Dioxide Anion Gap BUN Creatinine Estim Creat Clear Calc Estimated GFR Glucose POC Capillary Glucose 199 H Hemoglobin A1c Lactic Acid Calcium Urine Color Urine Appearance Urine pH Ur Specific [place] Urine Protein Urine Glucose (UA) Urine Ketones Ur Blood (Man) Urine Nitrate Urine Bilirubin Urine Urobilinogen Leukocyte Esterase Rfl Urine RBC Urine WBC Ur Squamous Epith Cells Urine Bacteria Urine Casts Urine Opiates Screen Urine Methadone Screen Ur Barbiturates Screen Ur Phencyclidine Scrn Ur Amphetamine Screen U Benzodiazepines Scrn Urine Cocaine Screen U Cannabinoids Screen
[2025-03-31] MEDS: cefTRIAXone 1 GM in SODIUM CHLORIDE 0.9% IV 50 ML 100 ML IVPB (20:41)
[2025-03-31] MEDS: ATORVASTATIN 20 MG TABLET PO (20:41)
[2025-03-31] MEDS: INSULIN GLARGINE (*BKC) 100 UNITS/ML 6 UNITS SUB-Q (20:59)
[2025-04-01] VITALS: BP 136/70; PULSE 76; RESP 20; TEMP 36.4; O2SAT 98
--- NOTE | 2025-04-01 00:16 | PC.NURSE ---
This patient, Efrain Longo, was transferred to [[facility] ] on 04/01/25 at 0008. Personal belongings sent with patient. Report given to [OMAR Suggs ]. Appropriate documentation sent with patient. Pt has no emergency contact listed to provide update to.
[2025-04-01 04:17] VITALS: BP 154/80; PULSE 66; RESP 20; TEMP 36.4; O2SAT 98
[2025-04-01 04:59] LABS: Hematocrit 33.3 % (42.0-52.0); Hemoglobin 11.3 g/dL (14.0-18.0); Immature Granulocyte Percent A 0.5 % (0-0.5); Lymphocytes Absolute Auto 2.33 K/mm3 (0.9-3.2); Mean Corpuscular HGB Conc 33.9 g/dl (32-36); Mean Corpuscular Hemoglobin 30.9 pg (26-34); Mean Corpuscular Volume 91.0 fl (80-100); Nucleated Red Blood Cells Absolute Auto 0.000 K/mm3 (0.0-0.012); Nucleated Red Blood Cells Perc 0.0 % (0.0-0.2); Platelet Count Result 223 k/mm3 (150-375); Red Blood Count 3.66 M/mm3 (4.6-6.20); White Blood Count 9.8 K/mm3 (4.5-10.0)
[2025-04-01 05:22] LABS: Albumin Level 3.7 g/dL (3.5-5.1); Anion Gap 7 mmol/L (4-12); Blood Urea Nitrogen 14 mg/dL (9-20); Calcium 8.9 mg/dL (8.4-10.2); Carbon Dioxide 29 mmol/L (22-30); Chloride 103 mmol/L (98-107); Estimated CRCL calculation 54 ml/min; Estimated Glomerular Filt Rate 56; Glucose 199 mg/dL (65-110); Magnesium 2.0 mg/dL (1.6-2.3); Potassium 3.8 mmol/L (3.4-5.0); Sodium 139 mmol/L (137-145)
[2025-04-01 05:46] LABS: Thyroid Stimulating Hormone Reflex 6.830 uIU/mL (0.465-4.68)
[2025-04-01] MEDS: metroNIDAZOLE 500 MG/ISO 100ML 500 MG/100 ML BAG 100 MG IVPB (06:00)
[2025-04-01 06:33] LABS: Vitamin B12 856.0 pg/mL (239-931)
[2025-04-01 07:37] LABS: Free T4 Free Thyroxine Reflex 1.02 ng/dL (0.78-2.19)
[2025-04-01] MEDS: FLUTICASONE/SALMETEROL 115-21 MCG INHALER 1 PUFF 2 PUFF INHALATION (08:52)
[2025-04-01 08:53] VITALS: PULSE 64; RESP 20; O2SAT 98
[2025-04-01] MEDS: PANTOPRAZOLE 40 MG TABLET PO (09:07)
[2025-04-01] MEDS: CYANOCOBALAMIN 1,000 MCG TABLET 1000 MCG PO (09:07)
[2025-04-01] MEDS: FENOFIBRATE 48 MG TABLET PO (09:07)
[2025-04-01] MEDS: ASPIRIN 81 MG CHEWABLE TABLET PO (09:07)
[2025-04-01] MEDS: ESCITALOPRAM OXALATE 10 MG TABLET 20 MG PO (09:07)
[2025-04-01] MEDS: DIVALPROEX SODIUM DR 250 MG TABEC 500 MG PO (09:07)
[2025-04-01] MEDS: DICLOFENAC SODIUM 1% 100 GM GEL (*BKC) 1 APPLIC TOPICAL (09:09)
[2025-04-01] MEDS: FLUTICASONE PROPIONATE 0.05% NA SPR 16 GM BTL (*BKC) 2 SPRAY NASAL (09:09)
[2025-04-01] MEDS: BISACODYL 10 MG SUPPOSITORY RECTAL (09:14)
[2025-04-01] MEDS: LACTULOSE 20 GM/30 ML UDC PO (09:14)
[2025-04-01] MEDS: LIDOCAINE 5% PATCH 1 PATCH TOPICAL (09:14)
[2025-04-01] MEDS: BENZTROPINE MESYLATE 1 MG TABLET 2 MG PO (09:23)
[2025-04-01 09:47] LABS: Total Triiodothyronine (T3) 1.13 NG/ML (0.82-1.58)
--- NOTE | 2025-04-01 11:27 | P.DS_ITS ---
DS: Admitting Diagnosis Discharge Date 04/01/25 Admitting Diagnosis Altered mental status DS: Discharge Diagnosis Discharge Diagnosis (1) Altered mental status: Code(s): R41.82 - Altered mental status, unspecified Status: Acute (2) COPD (chronic obstructive pulmonary disease): Code(s): J44.9 - Chronic obstructive pulmonary disease, unspecified Status: Acute (3) DM2 (diabetes mellitus, type 2): Code(s): E11.9 - Type 2 diabetes mellitus without complications Status: Acute (4) Hyperlipidemia: Code(s): E78.5 - Hyperlipidemia, unspecified Status: Acute (5) Hypertension: Code(s): I10 - Essential (primary) hypertension Status: Acute (6) Generalized anxiety disorder: Code(s): F41.1 - Generalized anxiety disorder Status: Acute (7) Schizophrenia: Code(s): F20.9 - Schizophrenia, unspecified Status: Acute DS: Summary Hospital Course Reason for hospitalization: 59yo male with schizophrenia, HLD, COPD, DM and HTN here for AMS. Please see H&P for details. Hospital Course: Following issues were addressed during his hospital course: (1) Altered mental status: The patient was hypotensive upon arrival. After IV fluids, the patient became more awake. WBC 19K and Lactic acid 3.9. Patient met criteria for SIRS but no source of infection was located at this time. Head CT was negative. CXR clear. UA was not consistent with UTI. CT Ch/A/P showing no acute findings. He did have fecal impaction and significant coronary artery calcifications. No CP. UDS negative. Troponin negative x 1. EKG showing normal sinus rhythm. BCx ordered and he was empirically started on Rocephin. WBC trended to normal. B12/Folate/Vit D levels normal. TSH slightly elevated but normal FT4. Consider possible seizure but no metabolic acidosis. He is on divalproex but unclear if this is for mental illness or for seizure disorder. His mental status did improve but he remained confused. VPA level was normal range. We started seizure precautions. He remained stable. (2) SIRS: As above (3) COPD (chronic obstructive pulmonary disease): He remained stable and on room air. No wheezing. We continued inhalers (4) DM2 (diabetes mellitus, type 2): A1c 7.8%. The patient's blood glucose was monitored with AccuCheks covering with sliding scale. Hypoglycemia protocol was available as needed. We added Lantus with benefit. (5) Hyperlipidemia: LFTs were normal. We continued with atorvastatin and fenofibrate (6) Hypertension: Patient's blood pressure was 85/66 on presentation. BP remained soft initially but then improved. We held amlodipine but continue lisinopril with parameters. (7) Generalized anxiety disorder: Mood stable. We continued with Lexapro (8) Schizophrenia: Stable. We continued with olanzapine (9) Coronary calcifications: Noted by CT. Patient was asymptomatic. Plan outpatient follow-up with Cardiology after discharge. We continued Lipitor and added aspirin. (10) Fecal impaction: MiraLax started but switched to lactulose with good results. Plan to continue Miralax at discharge. The patient overall did well and was able to be discharged 04/01/25. Discharge instructions discussed including medication side effects and all questions answered (but not sure how much information he retains). No contact information for a relative listed. Status at Discharge Cognitive/behavioral status at discharge: stable Time Spent with Patient Time attestation: Total time spent providing and/or coordinating discharge services: 32 minutes Time spent: Greater than 30 minutes Exam Narrative: AF 97.6 154/80 64 20 98% ra Gen - NARD Chest - CTA bilaterally, nml RR CV - RRR S1/S2 Abd - Soft, NT/ND, Positive BS Ext - No pedal edema Neuro - Alert but confused Psych - Nml mood and affect Skin - Warm and dry DS: Data Data Completed and Pending Labs on day of discharge: Labs from last 24 hours 04/01/25 04/01/25 04/01/25 08:05 07:23 04:47 WBC 9.8 RBC 3.66 L Hgb 11.3 L Hct 33.3 L MCV 91.0 MCH 30.9 MCHC 33.9 RDW 12.9 Plt Count 223 MPV 10.3 Immature Gran % (Auto) 0.5 Neut % (Auto) 62.6 Lymph % (Auto) 23.8 Gr[place]gs % (Auto) 11.8 H Eos % (Auto) 1.0 Baso % (Auto) 0.3 Lymph # (Auto) 2.33 [place]gs # (Auto) 1.2 H Eos # (Auto) 0.1 Baso # (Auto) 0.0 Abs Immat Gran (auto) 0.05 H Absolute Neuts (auto) 6.1 Absolute Nucleated RBC 0.000 Nucleated RBC % 0.0 Sodium 139 Potassium 3.8 Chloride 103 Carbon Dioxide 29 Anion Gap 7 BUN 14 Creatinine 1.31 H Estim Creat Clear Calc 54 Estimated GFR 56 L Glucose 199 H POC Capillary Glucose 177 H Calcium 8.9 Phosphorus 3.4 Magnesium 2.0 Albumin 3.7 Vitamin B12 856.0 Vitamin D 25-Hydroxy 43.6 Folate 7.4 TSH (Reflex) 6.830 H Free T4 1.02 Total T3 1.13 Valproic Acid 59.8 Levetiracetam 03/31/25 03/31/25 03/31/25 19:45 16:20 11:15 WBC RBC Hgb Hct MCV MCH MCHC RDW Plt Count MPV Immature Gran % (Auto) Neut % (Auto) Lymph % (Auto) Gr[place]gs % (Auto) Eos % (Auto) Baso % (Auto) Lymph # (Auto) Gr[place]gs # (Auto) Eos # (Auto) Baso # (Auto) Abs Immat Gran (auto) Absolute Neuts (auto) Absolute Nucleated RBC Nucleated RBC % Sodium Potassium Chloride Carbon Dioxide Anion Gap BUN Creatinine Estim Creat Clear Calc Estimated GFR Glucose POC Capillary Glucose 226 H 199 H 180 H Calcium Phosphorus Magnesium Albumin Vitamin B12 Vitamin D 25-Hydroxy Folate TSH (Reflex) Free T4 Total T3 Valproic Acid Levetiracetam 03/31/25 03:35 WBC RBC Hgb Hct MCV MCH MCHC RDW Plt Count MPV Immature Gran % (Auto) Neut % (Auto) Lymph % (Auto) [place]gs % (Auto) Eos % (Auto) Baso % (Auto) Lymph # (Auto) [place]gs # (Auto) Eos # (Auto) Baso # (Auto) Abs Immat Gran (auto) Absolute Neuts (auto) Absolute Nucleated RBC Nucleated RBC % Sodium Potassium Chloride Carbon Dioxide Anion Gap BUN Creatinine Estim Creat Clear Calc Estimated GFR Glucose POC Capillary Glucose Calcium Phosphorus Magnesium Albumin Vitamin B12 Vitamin D 25-Hydroxy Folate TSH (Reflex) Free T4 Total T3 Valproic Acid Levetiracetam Discharge Plan Discharge Attending physician on discharge: Kevin Lepe Discharging Clinician: Kevin Lepe Anticipated Discharge Date/Time: 04/01/25 11:42 Patient Disposition: [facility] Activity: no driving and as tolerated Diet: heart healthy and diabetic Discharge Instructions: Please check glucose before meals and before bed. Record for the doctor's review. Check blood pressure 1 to 2 times a day. Record for the doctor's review. Take precautions to avoid falls. Rise slowly from a lying or sitting position. Pause before standing or walking. Contact the doctor if the patient has fevers, altered mental status, lightheadedness with standing or other worrisome symptoms. Avoid NSAIDs (ibuprofen, naproxen, Aleve). Tylenol is safe to take. Follow-up with the provider at the facility. Follow-up with Cardiology in 1-2 weeks for noted coronary calcifications Follow-up with Neurology in 1-2 weeks for follow up on his confusion Thank you for using [facility] for your health care needs. Patient Instructions: Antibiotic Form, Sepsis (GEN), Altered Mental Status (GEN) Patient Language: Amharic Stand Alone Forms: General Discharge Information Follow-up/Referrals: Juan Antonio Bahena MD [Physician, Cardiology] - Call for Appointment Rosaura Harley MD [Physician, Neurology] - Call for Appointment UNKNOWN,DOCTOR [Primary Care Provider] - Other Discharge Medications: New aspirin [Children's Aspirin] 81 mg Tablet,Chewable 81 mg PO DAILY@0800 Qty: 30 0RF polyethylene glycol 3350 [Miralax] 17 gram/dose powder 17 g PO DAILY Qty: 119 0RF insulin glargine [Lantus U-100 Insulin] 100 unit/mL Solution 6 unit subcut HS Qty: 10 0RF Continued lidocaine 5 % adhesive patch,medicated 1 patch topical DAILY Rx Instructions: leave on most painful area for up to 12 hrs lower back benztropine 1 mg tablet 2 mg PO BID fluticasone propion-salmeterol 115-21 mcg/actuation HFA aerosol inhaler 2 puff INHALATION Q12H fluticasone propionate 50 mcg/actuation spray,suspension 2 spray INTRANASAL DAILY fenofibrate nanocrystallized 48 mg tablet 48 mg PO DAILY escitalopram oxalate 20 mg tablet 20 mg PO DAILY divalproex 500 mg tablet,delayed release (DR/EC) 500 mg PO Q12H olanzapine 10 mg tablet 10 mg PO DAILY lisinopril 10 mg tablet 10 mg PO DAILY pantoprazole 40 mg tablet,delayed release (DR/EC) 40 mg PO DAILY metformin 1,000 mg tablet 1,000 mg PO DAILY cyanocobalamin (vitamin B-12) 1,000 mcg capsule 1,000 mcg PO DAILY atorvastatin 20 mg tablet 20 mg PO HS olanzapine 5 mg tablet 5 mg PO HS diclofenac sodium 1 % gel 2 g topical QID Rx Instructions: apply to right knee for pain magnesium hydroxide [Milk of Magnesia] 400 mg/5 mL suspension 30 ml PO DAILY PRN (Reason: constipation) bisacodyl 10 mg suppository 10 mg RECTAL DAILY PRN (Reason: constipation) meloxicam 15 mg tablet 15 mg PO DAILY PRN (Reason: pain) magnesium citrate Solution 296 ml PO DAILY PRN (Reason: constipation) Airsupra 90-80 mcg/actuation HFA aerosol inhaler 2 inh INHALATION Q6H PRN (Reason: shortness of breath) Discontinued amlodipine 10 mg tablet 10 mg PO DAILY hydrocodone-acetaminophen 5-325 mg tablet 1 tablet PO Q6H PRN (Reason: pain) naloxone [Narcan] 4 mg/actuation spray,non-aerosol 4 mg intranasal Q2-3M PRN (Reason: opioid overdose) Rx Instructions: spray 1 dose into ONE nostril; alternate nostrils w each dose until help arrives Fleet Enema 19-7 gram/118 mL enema 118 ml RECTAL DAILY PRN (Reason: constipation) Date of admission: 03/30/25 19:54 Primary Care Provider: UNKNOWN,DOCTOR Admitting Provider: Kevin Lepe Attending physician on admission: Kevin Lepe Condition: Stable Hospitalist MIPS Heart Failure (Exclusion) Patient has history of Heart Transplant or Left Ventricular Assistive Device?: No IF YES, STOP HERE Heart Failure (Qualifier) Patient has current or prior documentation of LVEF less than or equal to 40%, or mod/servere depressed LVSF?: No IF NO, STOP HERE
[2025-04-01] MEDS: INSULIN ASPART (*BKC) 100 UNITS/ML SUB-Q (12:35)
--- NOTE | 2025-04-10 08:00 | PC.NURSE ---
Blood cx show no growth. Dr. Roberth callaway.
== END 2025-04-01 14:20 ==
LOC: ANHED 18:44 → ANHIMU 21:09 → ANH2MED 04-01 00:18
PROVIDERS: Emergency Medicine; Nurse Practitioner; Admitting Provider Internal Medicine; Emergency Provider Emergency Medicine; Visit Provider Internal Medicine
DX: R41.82 Altered mental status, unspecified (principal); R65.10 Systemic inflammatory response syndrome (SIRS) of non-infectious origin without acute organ dysfunction; F20.9 Schizophrenia, unspecified; I25.10 Atherosclerotic heart disease of native coronary artery without angina pectoris; K56.41 Fecal impaction; F17.210 Nicotine dependence, cigarettes, uncomplicated; E78.5 Hyperlipidemia, unspecified; E11.9 Type 2 diabetes mellitus without complications; J44.9 Chronic obstructive pulmonary disease, unspecified; I10 Essential (primary) hypertension; F41.1 Generalized anxiety disorder; Z79.4 Long term (current) use of insulin
CPT/HCPCS: 36415; 70450; 71045; 71260; 74177; 80048; 80053; 80069; 80164; 80177; 80307; 81001; 82306; 82607; 82746; 82948; 83036; 83605; 83690; 83735; 84439; 84443; 84480; 84484; 85025; 85027; 85610; 85730; 86140; 87040; 93005; 94640; 96361; 96365; 96366; 96367; 96376; 99285; A9270; G0378; J0696; J1815; J1836; J7120; Q9967

== ENCOUNTER 2025-04-05 10:38 | Emergency (ER) | payer MEDICARE, MEDICAID, SELFPAY ==
--- NOTE | ~2025-04-05 | XR_ITS ---
EXAMINATION: XR chest 1V portable COMPARISON: No comparisons available. HISTORY: AMS, weakness FINDINGS: Small left basilar infiltrate and minimal right basilar infiltrate noted otherwise the lungs are clear. No pneumothorax. Heart is normal size. Mediastinal and hilar contours are within normal limits. Bony thorax no acute abnormality. Miscellaneous: None Impression: Early basilar pneumonia suspected. Follow-up is suggested to ensure complete resolution. These findings are new compared to the previous study. Reviewed, dictated and finalized at location P. [employer] Impression: Early basilar pneumonia suspected. Follow-up is suggested to ensure complete re solution. These findings are new compared to the previous study.
[2025-04-05 10:45] VITALS: BP 130/75; PULSE 70; RESP 20; TEMP 36.6; O2SAT 98
[2025-04-05 10:50] VITALS: O2SAT 100
[2025-04-05 12:24] LABS: Hematocrit 35.6 % (42.0-52.0); Hemoglobin 12.3 g/dL (14.0-18.0); Immature Granulocyte Percent A 2.0 % (0-0.5); Lymphocytes Absolute Auto 2.04 K/mm3 (0.9-3.2); Mean Corpuscular HGB Conc 34.6 g/dl (32-36); Mean Corpuscular Hemoglobin 30.9 pg (26-34); Mean Corpuscular Volume 89.4 fl (80-100); Nucleated Red Blood Cells Absolute Auto 0.000 K/mm3 (0.0-0.012); Nucleated Red Blood Cells Perc 0.0 % (0.0-0.2); Platelet Count Result 299 k/mm3 (150-375); Red Blood Count 3.98 M/mm3 (4.6-6.20); White Blood Count 7.4 K/mm3 (4.5-10.0)
[2025-04-05 12:33] LABS: Ammonia < 9 umol/L (9-30)
[2025-04-05 12:38] LABS: Alanine Aminotransferase 11 U/L (6-50); Albumin Level 4.0 g/dL (3.5-5.1); Alkaline Phosphatase 59 U/L (38-126); Anion Gap 4 mmol/L (4-12); Aspartate Amino Transferase 16 U/L (17-59); Bilirubin,Total 0.2 mg/dL (0.2-1.3); Blood Urea Nitrogen 14 mg/dL (9-20); Calcium 9.2 mg/dL (8.4-10.2); Carbon Dioxide 33 mmol/L (22-30); Chloride 102 mmol/L (98-107); Estimated CRCL calculation 49 ml/min; Estimated Glomerular Filt Rate 56; Glucose 181 mg/dL (65-110); Potassium 4.3 mmol/L (3.4-5.0); Sodium 139 mmol/L (137-145); Total Protein 6.8 g/dL (6.3-8.2)
[2025-04-05 12:40] VITALS: BP 91/74; PULSE 68; RESP 17; O2SAT 98
[2025-04-05] MEDS: LACTATED RINGERS 1,000 ML 999 ML IV CONT (12:48)
[2025-04-05 13:08] LABS: Add Urine Microscopic? NO; Appearance Urine Clear (Clear); Glucose Urine UA 2+ mg/dL (Negative); Leukocyte Esterase Ur Negative LEU/UL (Negative); Nitrate Urine Negative (Negative); Specific Grav Ur 1.011 (1.001-1.035)
[2025-04-05] MEDS: AZITHROMYCIN 500 MG TABLET PO (13:54)
[2025-04-05] MEDS: cefTRIAXone 1 GM in SODIUM CHLORIDE 0.9% IV 50 ML 100 ML IVPB (13:54)
--- NOTE | 2025-04-05 14:45 | ED.AMS ---
HPI - Altered Mental Status General Chief Complaint: Altered Mental Status Stated Complaint: AMS - treated here for UTI 3 days ago Time Seen by Provider: 04/05/25 12:05 History of Present Illness HPI narrative: Patient presents here with AMS, had been admitted here for same a few days ago and found to have UTI and started on antibiotics; had extensive workup including CT brain. He is denying any complaints to me today; no pain anywhere, he just feels sleepy. Related Data Home Medications ?Medication ?Instructions ?Recorded ?Confirmed ?Last Taken ?Type benztropine 1 mg tablet 2 mg PO BID 03/30/25 03/30/25 Unknown History divalproex 500 mg tablet,delayed 500 mg PO Q12H 03/30/25 03/30/25 Unknown History release escitalopram oxalate 20 mg tablet 20 mg PO DAILY 03/30/25 03/30/25 Unknown History fenofibrate nanocrystallized 48 mg 48 mg PO DAILY 03/30/25 03/30/25 Unknown History tablet fluticasone propionate 115 2 puff inhalation Q12H 03/30/25 03/30/25 Unknown History mcg-salmeterol 21 mcg/actuation HFA inhaler fluticasone propionate 50 2 spray intranasal DAILY 03/30/25 03/30/25 Unknown History mcg/actuation nasal spray,suspension lidocaine 5 % topical patch 1 patch topical DAILY 03/30/25 03/30/25 Unknown History lisinopril 10 mg tablet 10 mg PO DAILY 03/30/25 03/31/25 Unknown History olanzapine 10 mg tablet 10 mg PO DAILY 03/30/25 03/30/25 Unknown History pantoprazole 40 mg tablet,delayed 40 mg PO DAILY 03/30/25 03/31/25 Unknown History release albuterol 90 mcg-budesonide 80 2 inh inhalation Q6H PRN shortness 03/31/25 03/31/25 Unknown History mcg/actuation HFA aerosol inhaler of breath (Airsupra) atorvastatin 20 mg tablet 20 mg PO HS 03/31/25 03/31/25 Unknown History bisacodyl 10 mg rectal suppository 10 mg RECTAL DAILY PRN constipation 03/31/25 03/31/25 Unknown History cyanocobalamin (vitamin B-12) 1,000 mcg PO DAILY 03/31/25 03/31/25 Unknown History 1,000 mcg capsule diclofenac sodium 1 % topical gel 2 g topical QID 03/31/25 03/31/25 Unknown History magnesium citrate 296 ml PO DAILY PRN constipation 03/31/25 03/31/25 Unknown History magnesium hydroxide 400 mg/5 mL 30 ml PO DAILY PRN constipation 03/31/25 03/31/25 Unknown History oral suspension (Milk of Magnesia) meloxicam 15 mg tablet 15 mg PO DAILY PRN pain 03/31/25 03/31/25 Unknown History metformin 1,000 mg tablet 1,000 mg PO DAILY 03/31/25 03/31/25 Unknown History olanzapine 5 mg tablet 5 mg PO HS 03/31/25 03/31/25 Unknown History Allergies Allergy/AdvReac Type Severity Reaction Status Date / Time No Known Allergies Allergy Verified 04/05/25 10:52 Review of Systems Review of Systems: All systems reviewed & are unremarkable except as noted in HPI and below PMFSH Past Medical History Medical History (Updated 04/05/25 @ 14:44 by Jennifer Hernandez MD) Hyperlipidemia COPD (chronic obstructive pulmonary disease) DM2 (diabetes mellitus, type 2) Generalized anxiety disorder Hypertension Schizophrenia Paranoid schizophrenia Surgical History Surgical History (Updated 03/31/25 @ 19:17 by Radha Kimble APRN) No pertinent past surgical history Family History Family History (Updated 03/31/25 @ 19:18 by Radha Kimble APRN) Other Unknown family medical history Social History Social History (Updated 03/31/25 @ 03:04 by Radha Kimble APRN) Social History: He stated that he is and has one child . He lives at [facility] Code status: DNR Smoking packs per day: 1 Smoking cigarettes per day: 20.0 Years smoked: 45 Smoking pack-years: 45.00 Smoking status: Current every day smoker Tobacco type: cigarettes Second hand tobacco smoke exposure: Yes Alcohol intake: unknown Substance use: unknown Spiritual care concerns: No Exam Narrative: EXAMINATION OF ORGAN SYSTEMS/BODY AREAS: Constitutional: Vital signs per nursing GENERAL:[No acute distress, non-toxic appearing.] HEAD: Normal with no signs of head trauma. EYES: EOMI, conjunctiva normal ENT: Hearing grossly intact LUNGS: Nonlabored breathing. HEART: [Regular rate and rhythm] ABD: [Soft], [nontender to palpation] EXT: Normal range of motion SKIN: [No rashes or lesions.] NEURO: [Sleepy but wakes to verbal stimulus and answers questions. No gross focal sensory or strength deficits.] PSYCH: Normal affect Course Vital Signs Vital signs: Vital Signs Temperature 97.8 F 04/05/25 10:45 Pulse Rate 70 04/05/25 10:45 Respiratory Rate 20 04/05/25 10:45 Blood Pressure 130/75 04/05/25 10:45 Pulse Oximetry 98 04/05/25 10:45 Oxygen Delivery Room Air 04/05/25 10:45 Temperature 97.8 F 04/05/25 10:45 Pulse Rate 68 04/05/25 12:40 Respiratory Rate 17 04/05/25 12:40 Blood Pressure 91/74 L 04/05/25 12:40 Pulse Oximetry 98 04/05/25 12:40 Oxygen Delivery Room Air 04/05/25 10:50 MDM - Altered Mental Status MDM Narrative Medical decision making narrative: Patient presents here with AMS, had been admitted here for same a few days ago and found to have UTI and started on antibiotics; had extensive workup including CT brain. He is denying any complaints to me today; no pain anywhere, he just feels sleepy. I did review EMR here for and his recent discharge summary as well as his admission records, did note that this was his exam at time of discharge with some baseline confusion, on my exam he has no focal neurologic deficits, he is moving all extremities equally, answering questions including tell me what his name is, and denying any complaints. I did repeat some workup, noted that he may have pneumonia and so he was started on antibiotics. At this time since he his exam is not much changed from when he was discharged I do feel he can be safely discharged with outpatient management. I did not feel that was necessary to repeat scan of his brain as there is no comment of trauma and I do not see any signs of trauma on exam. Lab Data 04/05/25 12:13 04/05/25 12:13 Labs: Lab Results 04/05/25 04/05/25 Range/Units 12:13 12:52 WBC 7.4 (4.5-10.0) K/mm3 RBC 3.98 L (4.6-6.20) M/mm3 Hgb 12.3 L (14.0-18.0) g/dL Hct 35.6 L (42.0-52.0) % MCV 89.4 (80-100) fl MCH 30.9 (26-34) pg MCHC 34.6 (32-36) g/dl RDW 12.4 (11.5-14.5) % Plt Count 299 (150-375) k/mm3 MPV 9.7 (7.4-10.4) fl Immature Gran % (Auto) 2.0 H (0-0.5) % Neut % (Auto) 55.3 (45.5-73.1) % Lymph % (Auto) 27.5 (18.3-44.2) % [place]aufman % (Auto) 11.7 H (2.6-8.5) % Eos % (Auto) 2.8 (0-4.4) % Baso % (Auto) 0.7 (0.2-1.2) % Lymph # (Auto) 2.04 (0.9-3.2) K/mm3 [place]aufman # (Auto) 0.9 H (0.1-0.6) K/mm3 Eos # (Auto) 0.2 (0-0.3) K/mm3 Baso # (Auto) 0.1 (0.0-0.1) K/mm3 Abs Immat Gran (auto) 0.15 H (0.00-0.031) K/mm3 Absolute Neuts (auto) 4.1 (1.3-6.7) K/mm3 Absolute Nucleated RBC 0.000 (0.0-0.012) K/mm3 Nucleated RBC % 0.0 (0.0-0.2) % Sodium 139 (137-145) mmol/L Potassium 4.3 (3.4-5.0) mmol/L Chloride 102 (98-107) mmol/L Carbon Dioxide 33 H (22-30) mmol/L Anion Gap 4 (4-12) mmol/L BUN 14 (9-20) mg/dL Creatinine 1.30 (0.7-1.3) mg/dL Estim Creat Clear Calc 49 ml/min Estimated GFR 56 L (59 - ) Glucose 181 H (65-110) mg/dL Calcium 9.2 (8.4-10.2) mg/dL Total Bilirubin 0.2 (0.2-1.3) mg/dL AST 16 L (17-59) U/L ALT 11 (6-50) U/L Alkaline Phosphatase 59 (38-126) U/L Ammonia < 9 L (9-30) umol/L Total Protein 6.8 (6.3-8.2) g/dL Albumin 4.0 (3.5-5.1) g/dL Urine Color Yellow (Yellow) Urine Appearance Clear (Clear) Urine pH 7.0 (5.0-9.0) Ur Specific Sherman 1.011 (1.001-1.035) Urine Protein Negative (Negative) mg/dL Urine Glucose (UA) 2+ H (Negative) mg/dL Urine Ketones Negative (Negative) mg/dL Ur Blood (Man) Negative (Negative) Urine Nitrate Negative (Negative) Urine Bilirubin Negative (Negative) Urine Urobilinogen 0.2 (<2.0) mg/dL Leukocyte Esterase Rfl Negative (Negative) TYRONE/UL Discharge Plan Discharge Clinical Impression: Altered mental status, Pneumonia Patient Disposition: NH [facility]/Asst Living Condition: Stable Instructions: Antibiotic Form, Pneumonia (ED) Additional Instructions: Please make sure to keep hydrated, take the antibiotics as prescribed, and for any further issues, please come back to the emergency room. Patient Language: Chinese Prescriptions: New azithromycin 250 mg tablet 250 mg PO DAILY 4 Days Qty: 4 0RF Rx Instructions: start on day 2 of therapy amoxicillin-pot clavulanate 875-125 mg tablet 1 tablet PO Q12H Qty: 10 0RF No Action lidocaine 5 % adhesive patch,medicated 1 patch topical DAILY Rx Instructions: leave on most painful area for up to 12 hrs lower back benztropine 1 mg tablet 2 mg PO BID fluticasone propion-salmeterol 115-21 mcg/actuation HFA aerosol inhaler 2 puff INHALATION Q12H fluticasone propionate 50 mcg/actuation spray,suspension 2 spray INTRANASAL DAILY fenofibrate nanocrystallized 48 mg tablet 48 mg PO DAILY escitalopram oxalate 20 mg tablet 20 mg PO DAILY divalproex 500 mg tablet,delayed release (DR/EC) 500 mg PO Q12H olanzapine 10 mg tablet 10 mg PO DAILY lisinopril 10 mg tablet 10 mg PO DAILY pantoprazole 40 mg tablet,delayed release (DR/EC) 40 mg PO DAILY metformin 1,000 mg tablet 1,000 mg PO DAILY cyanocobalamin (vitamin B-12) 1,000 mcg capsule 1,000 mcg PO DAILY atorvastatin 20 mg tablet 20 mg PO HS olanzapine 5 mg tablet 5 mg PO HS diclofenac sodium 1 % gel 2 g topical QID Rx Instructions: apply to right knee for pain magnesium hydroxide [Milk of Magnesia] 400 mg/5 mL suspension 30 ml PO DAILY PRN (Reason: constipation) bisacodyl 10 mg suppository 10 mg RECTAL DAILY PRN (Reason: constipation) meloxicam 15 mg tablet 15 mg PO DAILY PRN (Reason: pain) magnesium citrate Solution 296 ml PO DAILY PRN (Reason: constipation) Airsupra 90-80 mcg/actuation HFA aerosol inhaler 2 inh INHALATION Q6H PRN (Reason: shortness of breath) aspirin [Children's Aspirin] 81 mg Tablet,Chewable 81 mg PO DAILY@0800 Qty: 30 0RF polyethylene glycol 3350 [Miralax] 17 gram/dose powder 17 g PO DAILY Qty: 119 0RF insulin glargine [Lantus U-100 Insulin] 100 unit/mL Solution 6 unit subcut HS Qty: 10 0RF Follow-up/Referrals: UNKNOWN,DOCTOR [Primary Care Provider]
--- NOTE | 2025-04-05 15:03 | PC.NURSE ---
Attempted to call report, no answer from the long term.
[2025-04-05 15:22] VITALS: BP 123/72; PULSE 79; RESP 18; O2SAT 99
== END 2025-04-05 17:55 ==
PROVIDERS: Emergency Provider Emergency Medicine
DX: J18.9 Pneumonia, unspecified organism (principal); I10 Essential (primary) hypertension; J44.9 Chronic obstructive pulmonary disease, unspecified; E78.5 Hyperlipidemia, unspecified; E11.9 Type 2 diabetes mellitus without complications; F41.1 Generalized anxiety disorder; F20.9 Schizophrenia, unspecified; F17.210 Nicotine dependence, cigarettes, uncomplicated; Z66 Do not resuscitate; Z79.899 Other long term (current) drug therapy; Z79.82 Long term (current) use of aspirin; Z79.4 Long term (current) use of insulin; Z79.84 Long term (current) use of oral hypoglycemic drugs
CPT/HCPCS: 36415; 71045; 80053; 81003; 82140; 85025; 96365; 99284; J0696; J7120